=== PATIENT | female | born 1980 | race American Indian/Alaskan Native ===

== ENCOUNTER 2019-02-21 09:18 | Emergency (ER) | payer MEDICAID, OTHER ==
[2019-02-21 09:45] VITALS: BMI 26.8
--- NOTE | 2019-02-21 09:49 | ED PDOC ---
Arrival/HPI - General Time Seen by Provider: 02/21/19 09:30 Historian: Patient - History of Present Illness Narrative History of Present Illness (Text): 02/21/19 09:46 39 year old female, with past medical history of pulmonary hypertension and asthma, presents to the ED for evaluation of dizziness/weakness prior to arrival. Patient states she was trying to catch a train when she experienced difficulty catching full breath and lightheadedness prompting her to present to the ED for medical evaluation. At bedside, patient is in no acute distress and has appropriate respiration. Patient denies any fevers, chills, headache, chest pain, cough, diaphoresis, abdominal pain, nausea, vomiting, diarrhea, back pain, neck pain, or any other complaints. Time/Duration: Prior to Arrival Symptom Onset: Gradual Symptom Course: Unchanged Activities at Onset: Light Past Medical History - Provider Review Nursing Documentation Reviewed: Yes - Infectious Disease Hx of Infectious Diseases: None - Tetanus Immunization Tetanus Immunization: Unknown - Cardiac Other/Comment: open heart surgery @ 2yo. pulmonary stenosis - Hematological/Oncological Hx Anemia: Yes - Psychiatric Hx Depression: No Hx Emotional Abuse: No Hx Physical Abuse: No Hx Substance Use: No - Surgical History Other/Comment: heart surgery @ 2y.o. - Anesthesia Hx Anesthesia: Yes Hx Anesthesia Reactions: No Hx Malignant Hyperthermia: No - Suicidal Assessment Feels Threatened In Home Enviroment: No Family/Social History - Physician Review Nursing Documentation Reviewed: Yes Family/Social History: Unknown Family HX Smoking Status: Never Smoked Hx Alcohol Use: Yes Hx Substance Use: No Hx Substance Use Treatment: No Allergies/Home Meds Allergies/Adverse Reactions: Allergies aspirin Allergy (Verified 02/21/19 10:02) SHORTNESS OF BREATH nickel Allergy (Verified 02/21/19 10:02) RASH pineapple Allergy (Verified 02/21/19 10:02) ITCHING Home Medications: Home Meds Medication Instructions Recorded Confirmed Clonazepam [Klonopin] 0.5 mg PO PRN PRN 09/14/13 09/14/13 Review of Systems - Physician Review All systems were reviewed & negative as marked: Yes - Review of Systems Constitutional: absent: Fevers Eyes: absent: Vision Changes ENT: absent: Hearing Changes Respiratory: SOB. absent: Cough, Wheezing Cardiovascular: absent: Chest Pain, Palpitations, FORTUNE, Syncope Gastrointestinal: absent: Abdominal Pain, Diarrhea, Nausea, Vomiting Genitourinary Female: absent: Dysuria, Urine Output Changes Musculoskeletal: absent: Back Pain, Neck Pain Skin: absent: Rash Neurological: Dizziness. absent: Headache, Focal Weakness, Gait Changes, Speech Changes Endocrine: absent: Diaphoresis Psychiatric: absent: Anxiety Physical Exam Vital Signs Reviewed: Yes Vital Signs Temp Pulse Resp BP Pulse Ox 02/21/19 09:40 98.4 F 86 18 146/92 H 98 Temperature: Afebrile Blood Pressure: Normal Pulse: Regular Respiratory Rate: Normal Appearance: Positive for: Well-Appearing, Non-Toxic, Comfortable Pain Distress: None Mental Status: Positive for: Alert and Oriented X 3 - Systems Exam Head: Present: Atraumatic, Normocephalic Pupils: Present: PERRL Extroacular Muscles: Present: EOMI Conjunctiva: Present: Normal Pharnyx: Present: ERYTHEMA Neck: Present: Normal Range of Motion Respiratory/Chest: Present: Clear to Auscultation, Good Air Exchange. No: Respiratory Distress, Accessory Muscle Use Cardiovascular: Present: Regular Rate and Rhythm, Normal S1, S2. No: Murmurs Abdomen: No: Tenderness, Distention, Peritoneal Signs Back: Present: Normal Inspection Upper Extremity: Present: Normal Inspection. No: Cyanosis, Edema Lower Extremity: Present: Normal Inspection. No: Edema Neurological: Present: GCS=15, CN II-XII Intact, Speech Normal Skin: Present: Warm, Dry, Normal Color. No: Rashes Psychiatric: Present: Alert, Oriented x 3, Normal Insight, Normal Concentration Medical Decision Making ED Course and Treatment: 02/21/19 09:51 Impression: 39 year old female presents to the ED for evaluation of dizziness/weakness and difficulty catching her breath. ro pe, anemia, cardiac eitology Plan: -- EKG -- Labs -- Chest X-ray -- Urinalysis -- Reassess and disposition Prior Visits: Notes and results from previous visits were reviewed. Progress Notes: 02/21/19 09:52 EKG reviewed, shows NSR @85 bpm, no ST/T wave changes. 02/21/19 14:51 labs neg. dimer elevated cta neg. no leg pain. pt asking for dc. seen joking in nad with significant other, well appearing. - RAD Interpretation Radiology Orders: 02/21/19 09:46 CHEST PORTABLE [RAD] Stat - EKG Interpretation Interpreted by ED Physician: Yes Type: 12 lead EKG - Scribe Statement The provider has reviewed the documentation as recorded by the Scribe Peg Burrell. All medical record entries made by the Scribe were at my direction and personally dictated by me. I have reviewed the chart and agree that the record accurately reflects my personal performance of the history, physical exam, medical decision making, and the department course for this patient. I have also personally directed, reviewed, and agree with the discharge instructions and disposition. Disposition/Present on Arrival - Present on Arrival Any Indicators Present on Arrival: No History of DVT/PE: No History of Uncontrolled Diabetes: No Urinary Catheter: No History Surgical Site Infection Following: None - Disposition Have Diagnosis and Disposition been Completed?: Yes Diagnosis: SOB (shortness of breath), Dizzy Disposition: HOME/ ROUTINE Disposition Time: 13:50 Condition: STABLE Discharge Instructions (ExitCare): Shortness of Breath (Dyspnea), Dizziness, Nonvertigo, (DC) Additional Instructions: return toe r with worsening symptoms or concerns. Referrals: Alyssa Curtis MD [Primary Care Provider] - Follow up with primary Forms: [facility] ([employer]), WORK NOTE
[2019-02-21 10:13] VITALS: TEMP 98.6; O2SAT 100
[2019-02-21 11:38] VITALS: RESP 18
[2019-02-21 11:38] LABS: BASO # 0.02 K/mm3 (0.0-2.0); BASO % 0.3 % (0.0-3.0); EOS # 0.1 (0.0-0.7); EOS % 1.1 % (1.5-5.0); HEMOGLOBIN 13.5 g/dL (12.0-16.0); LYMPH # 2.5 (1.2-3.4); LYMPH % 33.9 % (22.0-35.0); MEAN CELL VOLUME 91.2 fl (80.0-105.0); MEAN CORPUSCULAR HEMOGLOBIN 30.6 pg (25.0-35.0); MEAN CORPUSCULAR HGB CONC 33.6 g/dl (31.0-37.0); MEAN PLATELET VOLUME 11.3 fl (7.0-11.0); MONO # 0.5 (0.1-0.6); MONO % 7.2 % (1.0-6.0); RBC 4.41 10^6/uL (3.5-6.1); RED CELL DISTRIBUTION WIDTH 13.2 % (11.5-14.5); WHITE BLOOD COUNT 7.4 10^3/uL (4.5-11.0)
[2019-02-21 11:39] LABS: URINE BILIRUBIN NEGATIVE (NEGATIVE); URINE BLOOD NEGATIVE (NEGATIVE); URINE GLUCOSE (UA) NEGATIVE (NEGATIVE); URINE LEUKOCYTE ESTERASE NEGATIVE Leu/uL (NEGATIVE); URINE PROTEIN 30 mg/dL (<30 mg/dL)
[2019-02-21 11:40] LABS: URINE APPEARANCE CLEAR (CLEAR); URINE COLOR YELLOW (YELLOW)
[2019-02-21 11:44] LABS: INR 1.06; PARTIAL THROMBOPLASTIN TIME 36.3 Seconds (26.9-38.3)
[2019-02-21 11:46] LABS: ALBUMIN 4.2 g/dL (3.0-4.8); ALT/SGPT 22 U/L (7-56); AST/SGOT 33 U/L (14-36); BLOOD UREA NITROGEN 14 mg/dL (7-21); CALCIUM 9.1 mg/dL (8.4-10.5); GFR NON-AFRICAN AMERICAN > 60
[2019-02-21 11:47] LABS: URINE AMORPHOUS SEDIMENT FEW /hpf; URINE BACTERIA LARGE /hpf; URINE RBC 0 - 2 /hpf (0-2)
[2019-02-21 11:57] LABS: B-TYPE NATRIURETIC PEPTIDE 36.5 pg/mL (0-450); TROPONIN I < 0.01 ng/mL
[2019-02-21] MEDS ORDERED: Iodixanol 320 MG/ML 100 ML BOTTLE IV ONE (12:21)
--- NOTE | 2019-02-21 13:24 | RAD ---
Date of service: 02/21/2019 HISTORY: sob COMPARISON: 10/21/2016 TECHNIQUE: 1 view obtained. FINDINGS: LUNGS: No active pulmonary disease. PLEURA: No significant pleural effusion identified, no pneumothorax apparent. CARDIOVASCULAR: No aortic atherosclerotic calcification present. Mild cardiomegaly no pulmonary vascular congestion. OSSEOUS STRUCTURES: No significant abnormalities. VISUALIZED UPPER ABDOMEN: Normal. OTHER FINDINGS: None. IMPRESSION: No active disease.
--- NOTE | 2019-02-21 13:39 | CT ---
Date of service: 02/21/2019 PROCEDURE: CT Chest with contrast (Pulmonary Angiogram) HISTORY: sob elevated dimer COMPARISON: None available. TECHNIQUE: Axial computed tomography images were obtained of the chest in the pulmonary arterial phase of enhancement. Coronal and sagittal reformatted images were created and reviewed. Intravenous contrast dose: 100 mL Omnipaque 350 Radiation dose: Total exam DLP = 472.8 mGy-cm. This CT exam was performed using one or more of the following dose reduction techniques: Automated exposure control, adjustment of the mA and/or kV according to patient size, and/or use of iterative reconstruction technique. FINDINGS: PULMONARY ARTERIES: Unremarkable. No pulmonary embolism. AORTA: No acute findings. No thoracic aortic aneurysm. No aortic atherosclerotic calcification or mural plaque present. LUNGS: Unremarkable. No nodule, mass or pulmonary consolidation. PLEURAL SPACES: Unremarkable. No effusion or pneumothorax. HEART: Unremarkable. No cardiomegaly. No significant pericardial effusion. LYMPH NODES: No lymphadenopathy. BONES, CHEST WALL: Unremarkable. No fracture or destructive lesion OTHER FINDINGS: 1.5 cm nodule in right lobe of thyroid. Correlation with thyroid ultrasound examination is advised on a nonemergent basis. IMPRESSION: No evidence of pulmonary embolism. No infiltrate or pleural effusion. Incidental 1.5 cm nodule in right lobe of thyroid. Correlate with thyroid ultrasound examination.
[2019-02-21 13:51] VITALS: BP 122/78; PULSE 73
--- NOTE | 2019-02-21 17:56 | CARD ---
APPROVED REPORT Date of service: 02/21/2019 EKG Measurement Heart [id number] <Conclusion> Normal sinus rhythm Normal ECG
== END 2019-02-21 13:47 | disposition home or self-care (01) ==
LOC: ED 09:18
DX: R42 Dizziness and giddiness (principal); R06.02 Shortness of breath; I27.20 Pulmonary hypertension, unspecified
CPT/HCPCS: 71045; 71275; 80053; 81001; 81025; 82550; 83615; 83735; 83880; 84484; 84703; 85025; 85378; 85610; 85730; 93005; 99284; Q9967